=== PATIENT | male | born 1935 | race American Indian/Alaskan Native ===

== ENCOUNTER 2017-10-16 19:02 | Emergency (ER) | payer MEDICARE ==
--- NOTE | 2017-10-16 19:17 | Emergency Department Report ---
ED General Adult HPI - General Stated complaint: CARDIAC ARREST Time Seen by Provider: 10/16/17 19:17 - History of Present Illness Initial comments: Patient is an 82-year-old male who presents being found down after difficulty breathing. EMS arrived and intubated the patient patient received 30 minutes of CPR prior to arrival. History of present illness is limited due to acuity of condition. - Related Data Home Medications Medication Instructions Recorded Confirmed Last Taken Albuterol Sulfate [Proair Hfa] 2 inhalation INHALATION Q4-6H PRN 06/23/16 Unknown B1/B2/B3/B5/B6/Iron/Meth/Choln 1 tab PO DAILY 06/23/16 06/23/16 Unknown [Geritol Tonic] Cod Liver Oil 1 tab PO DAILY 06/23/16 06/23/16 Unknown Previous Rx's Medication Instructions Recorded Last Taken Type Azithromycin [Zithromax] 250 mg PO DAILY #5 tablet 06/25/16 Unknown Rx Prednisone [predniSONE 10 mg 10 mg PO .TAPER #1 tab.ds.pk 06/25/16 Unknown Rx (6-Day Pack, 21 Tabs)] Allergies Allergy/AdvReac Type Severity Reaction Status Date / Time No Known Allergies Allergy Verified 10/16/17 19:48 ED Review of Systems ROS: Stated complaint: CARDIAC ARREST Other details as noted in HPI Comment: Unobtainable due to pts medical conditions (acuity of condition) ED Past Medical Hx - Past Medical History Hx CVA: Yes (2004) Hx Arthritis: No Hx COPD: Yes Additional medical history: brain aneurysm - Social History Smoking Status: Former Smoker - Medications Home Medications: Home Medications Medication Instructions Recorded Confirmed Last Taken Type Albuterol Sulfate [Proair Hfa] 2 inhalation INHALATION Q4-6H PRN 06/23/16 Unknown History B1/B2/B3/B5/B6/Iron/Meth/Choln 1 tab PO DAILY 06/23/16 06/23/16 Unknown History [Geritol Tonic] Cod Liver Oil 1 tab PO DAILY 06/23/16 06/23/16 Unknown History Azithromycin [Zithromax] 250 mg PO DAILY #5 tablet 06/25/16 Unknown Rx Prednisone [predniSONE 10 mg 10 mg PO .TAPER #1 tab.ds.pk 06/25/16 Unknown Rx (6-Day Pack, 21 Tabs)] ED Physical Exam - General Limitations: Other (acuity of ) - Head Head exam: Present: other (pupils fixed and dilated. No gag reflex) - ENT ENT exam: Present: other (ET tube in oropharynx) - Respiratory Respiratory exam: Present: other (no spontaneous breath sounds) - Cardiovascular Cardiovascular Exam: Present: other (no spontaneous heart rate) - Skin Skin exam: Present: other (skin cold and dry) ED Medical Decision Making - Medical Decision Making Chief medical diagnosis: Cardiac arrest Patient got 1 amp of epi and approximately 3 minutes of CPR ED bedside ultrasound cardiac: Shows no cardiac activity. Due to patient's age and medical cormorbidities and him receiving 30 minutes of CPR prior to arrival time of was called time of was called approximately 3 minutes after arrival to the emergency department. Time of was called at 19:02 us with patient's . She wishes to see the patient. Critical care attestation.: If time is entered above; I have spent that time in minutes in the direct care of this critically ill patient, excluding procedure time. ED Disposition Clinical Impression: Cardiac arrest Disposition: DC-20 Is pt being admited?: No Does the pt Need Aspirin: No Condition: Stable Referrals: PRIMARY CARE, [Primary Care Provider] - 3-5 Days
== END 2017-10-16 20:30 ==
LOC: ED 19:02
DX: I46.9 Cardiac arrest, cause unspecified (principal)
CPT/HCPCS: 92950